=== PATIENT | female | born 1940 | race Caucasian/White ===

== ENCOUNTER 2024-08-04 07:10 | Day surgery (SDC) | payer OTHER, BC ==
[2024-08-02 12:59] VITALS: BMI 35.6
[2024-08-04] MEDS ORDERED: VANCOMYCIN 1,000 MG VIAL (RESTRICTED TO ID ONLY) ONE (08:20)
[2024-08-04] MEDS ORDERED: KETOROLAC TROMETHAMINE 60 MG/2 ML VIAL ONE (08:21)
[2024-08-04] MEDS ORDERED: BUPIVACAINE HCL/PF 2.5 MG/ML - 30 ML VIAL IJ ONE (08:22)
[2024-08-04 08:31] LABS: INR 1.08 (0.83-1.09)
[2024-08-04 08:34] LABS: ACTIVATED PTT 30.5 SECONDS (25.2-36.5)
[2024-08-04] MEDS ORDERED: ROPIVACAINE HCL/PF 100 MG/20 ML VIAL ONE (09:09)
[2024-08-04] MEDS ORDERED: MIDAZOLAM HCL 2 MG/2 ML SINGLE DOSE VIAL ONE ×2 (09:09→09:25)
[2024-08-04] MEDS ORDERED: DEXAMETHASONE SOD PHOSPHATE 10 MG/1 ML VIAL ONE (09:09)
[2024-08-04] MEDS ORDERED: BUPIVACAINE HCL/PF 0.5% (5MG/ML) 10 ML VIAL ONE (09:21)
[2024-08-04] MEDS ORDERED: ePHEDrine SULFATE 50 MG/1 ML AMPULE ONE (09:24)
[2024-08-04] MEDS ORDERED: PROPOFOL 40 ML ONE (09:24)
[2024-08-04] MEDS ORDERED: ROCURONIUM BROMIDE 50 MG/5 ML SYRINGE ONE ×2 (09:57→11:20)
[2024-08-04] MEDS ORDERED: SUGAMMADEX SODIUM 200 MG/2 ML VIAL ONE (11:52)
[2024-08-04] MEDS: VANCOMYCIN 1,000 MG VIAL (RESTRICTED TO ID ONLY) IVPB ONE ×3 (12:02→12:13)
[2024-08-04] MEDS ORDERED: ACETAMINOPHEN INJECTION 100 ML ONE (12:17)
[2024-08-04] MEDS ORDERED: ONDANSETRON 4 MG/2 ML VIAL IVPUSH PRN (12:19)
[2024-08-04] MEDS ORDERED: oxyCODONE HCL 5 MG TABLET PO PRN (12:20)
[2024-08-04] MEDS ORDERED: MAGNESIUM HYDROX 2400MG/30ML ORAL SUSPENSION 30 ML CUP PO PRN (12:21)
[2024-08-04] MEDS ORDERED: MAG HYDROX/AL HYDROX/SIMETH 30 ML UNIT-DOSE CUP PO PRN (12:21)
[2024-08-04] MEDS ORDERED: SEVOFLURANE 250 ML BTL ONE (12:26)
[2024-08-04] MEDS ORDERED: KETOROLAC TROMETHAMINE 30 MG/1 ML VIAL ONE (12:43)
[2024-08-04] MEDS ORDERED: FENTANYL CITRATE/PF 50 MCG/ML VIAL ONE (14:16)
[2024-08-04] MEDS ORDERED: ONDANSETRON 4 MG/2 ML VIAL ONE (14:16)
[2024-08-04] MEDS: ONDANSETRON 4 MG/2 ML VIAL IVPUSH PRN (14:18)
[2024-08-04] MEDS ORDERED: HYDROmorphone HCL/PF 1 MG/ML VIAL ONE (14:35)
[2024-08-04] MEDS ORDERED: oxyCODONE HCL 5 MG TABLET ONE (14:36)
[2024-08-04] MEDS: HYDROmorphone HCl 2 MG/ML VIAL IVPUSH ONE (14:37)
[2024-08-04] MEDS: oxyCODONE HCL 5 MG TABLET PO PRN ×3 (14:50→23:57)
[2024-08-04] MEDS: CEFAZOLIN 2 GM/D5W 2 GRAM/50 ML ML IVPB SCH (17:50)
[2024-08-04] MEDS: ACETAMINOPHEN 1000 MG/100 ML BAG IVPB SCH (17:50)
[2024-08-04] MEDS: CEFAZOLIN 2 GM in DEXTROSE 5%-WATER - 50 ML IVPB ONE (19:59)
[2024-08-04] MEDS: ASPIRIN 81 MG CHEWABLE TABLETS PO SCH (21:16)
[2024-08-04] MEDS: SENNOSIDES/DOCUSATE COMBO (SENNA PLUS) TABLET (UD) PO SCH (21:16)
[2024-08-04] MEDS: FAMOTIDINE 20 MG TABLET PO SCH (21:16)
[2024-08-05 02:08] VITALS: RESP 18
[2024-08-05 08:18] LABS: HEMATOCRIT 27.8 % (34.1-44.9); HEMOGLOBIN 9.3 g/dL (11.2-15.7); MCHC 33.5 g/dl (32.2-35.5); MEAN CELL VOLUME 94.2 fl (79.4-94.8); MEAN PLT VOLUME 10.8 fl (9.4-12.3); PLATELET COUNT 183 x10^3/uL (182-369); RDW 13.5 % (12.5-17.0)
[2024-08-05 08:51] LABS: ALBUMIN 3.5 g/dl (3.4-5.0); BILIRUBIN,TOTAL 0.4 mg/dl (0.2-1); CALCIUM 8.4 mg/dl (8.5-10.1); CREATININE 1.3 mg/dl (0.6-1.3); POTASSIUM 4.2 mmol/L (3.5-5.1); TOT PROT 6.1 g/dl (6.4-8.2)
[2024-08-05] MEDS: ANASTROZOLE 1 MG TABLET PO SCH (09:11)
[2024-08-05] MEDS: FLUTICASONE/UMECLIDIN/VILANTER(100-62.5-25 TRELEGY ELLIPTA) INAHLER IH SCH (09:11)
[2024-08-05] MEDS: MULTIVITAMINS (DAILY MVI) TABLET (FP) PO SCH (09:12)
[2024-08-05] MEDS: APIXABAN 2.5 MG TABLET PO SCH (09:12)
[2024-08-05] MEDS: CHOLECALCIFEROL (VIT D3) 1,000 UNIT (25 MCG) TABLET PO SCH (09:12)
[2024-08-05] MEDS: DEXAMETHASONE 4 MG TABLET (FP) PO ONE (09:16)
[2024-08-05] MEDS ORDERED: TRIAMTERENE 50 MG CAPSULE PO SCH (10:00)
[2024-08-05 10:09] VITALS: PULSE 66
[2024-08-05] MEDS: TRIAMTERENE 50 MG CAPSULE PO SCH (10:46)
[2024-08-05 14:35] VITALS: BP 132/68; TEMP 97
== END 2024-08-05 16:30 | disposition home health service (06) ==
LOC: SUATTDRO 07:10 → FASUSAT 07:10 → FM/S 16:24 → FASUSAT 08-05 16:30
PROC: 8E0Y0CZ Robotic Assisted Procedure of Lower Extremity, Open Approach (ICD-10-PCS; 2024-08-04)
PROC: 0SRD0J9 Replacement of Left Knee Joint with Synthetic Substitute, Cemented, Open Approach (ICD-10-PCS; principal; 2024-08-04 10:38)
DX: M17.12 Unilateral primary osteoarthritis, left knee (principal)
CPT/HCPCS: 20985; 27447; C1776; S2900; 36415; 73560-TC-LT-FY; 80053; 85025; 85610; 85730; 94760; 97010-GP; 97116-GP; 97162-GP; J0131; J1100